=== PATIENT | female | born 1960 | race Two or more races ===

== ENCOUNTER 2021-04-24 11:19 | Emergency (ER) | payer SELFPAY ==
[~2021-04-24] VITALS: Ht 162.6 cm; Wt 82.6 kg
[2021-04-24 11:21] VITALS: BP 137/82
[2021-04-24] MEDS ORDERED: ALBUTEROL/IPRATROPIUM 2.5MG/0.5MG, 3 ML ONE (12:00)
[2021-04-24] MEDS ORDERED: ALBUTEROL/IPRATROPIUM 2.5MG/0.5MG, 3 ML NPPB ONE (12:00)
== END 2021-04-24 12:48 | disposition home or self-care (01) ==
LOC: ED 11:50
DX: J44.1 Chronic obstructive pulmonary disease with (acute) exacerbation (principal); Z87.891 Personal history of nicotine dependence
CPT/HCPCS: 94640; 99283; J7512